=== PATIENT | male | born 1975 | race Caucasian/White ===

== ENCOUNTER 2023-07-18 06:09 | Day surgery (SDC) | payer OTHER ==
[~2023-07-18] VITALS: Ht 188 cm; Wt 139.1 kg
[~2023-07-18 06:09] MED LIST: ABILIFY 10MG TA10 MG PO; ATARAX 25MG25 MG/TAB PO; HCTZ12.5TAB PO; LR 1,000 ML IV SCH; MINIPRESS2 MG PO; Ondansetron 4 MG/2 ML VIAL IV PRN; PRINIVIL40 MG PO; ZOLOFT 100MG100 MG PO
[2023-07-18] MEDS ORDERED: RANEXA1000 MG PO (06:40)
[2023-07-18] MEDS ORDERED: AMBIEN 10MG10 MG PO (06:41)
[2023-07-18 07:33] VITALS: BP 111/81; PULSE 100; TEMP 96.8
[2023-07-18 08:30] VITALS: BP 103/69; PULSE 88; TEMP 97.1
[2023-07-18 08:45] VITALS: BP 105/82; PULSE 88
--- NOTE | 2023-07-18 09:00 | NUR ---
0830 RETURNS TO ROOM 1 PER CART. AWAKE, ALERT. RESP UNLABORED. AMBULATES TO RECLINER WITH STANDBY ASSIST. DENIES NAUSEA OR ABD PAIN. VITAL SIGNS OBTAINED. CALL LIGHT AT SIDE. 0835 DR. FRAZIER HERE TO VISIT WITH PATIENT [id number] TOL[address]ATES PO JUICE AND MUFFIN WITHOUT NAUSEA. DISCHARGE INSTRUCTIONS REVIEWED. PATIENT VERBALIZES UNDERSTANDING. COPY PROVIDED IN DISCHARGE FOLDER [id number] DRESSES SELF
== END 2023-07-18 09:00 | disposition home or self-care (01) ==
LOC: SDCO 06:09
DX: Z12.11 Encounter for screening for malignant neoplasm of colon (principal); K57.30 Diverticulosis of large intestine without perforation or abscess without bleeding; K64.0 First degree hemorrhoids; F17.210 Nicotine dependence, cigarettes, uncomplicated; G47.33 Obstructive sleep apnea (adult) (pediatric)
CPT/HCPCS: J2704; J7120